=== PATIENT | female | born 1955 | race Caucasian/White ===

== ENCOUNTER 2019-11-27 03:07 | Emergency (ER) | payer MEDICAID ==
[~2019-11-27] VITALS: Ht 167.6 cm; Wt 90.0 kg
[2019-11-27 03:12] VITALS: BP 148/94
--- NOTE | 2019-11-27 03:20 | NUR ---
[facility] CASE # [id number]
== END 2019-11-27 04:25 | disposition home or self-care (01) ==
LOC: ER 03:09
DX: R51 Headache (principal); M25.532 Pain in left wrist; Z88.1 Allergy status to other antibiotic agents; Y04.0XXA Assault by unarmed brawl or fight, initial encounter; Y93.89 Activity, other specified; Y92.89 Other specified places as the place of occurrence of the external cause; Y99.8 Other external cause status
CPT/HCPCS: 70450; 73110; 99284